=== PATIENT | female | born 1980 | race Caucasian/White ===

== ENCOUNTER 2018-06-24 13:44 | Observation (INO) | payer SELFPAY ==
[~2018-06-24] VITALS: Ht 160 cm; Wt 73.0 kg
[~2018-06-24 13:44] MED LIST: ALPR0.25 PO; ASPI-496 PO; FAMO20TA37 PO; LORA-446 PO; MELA1TAB8 PO
--- NOTE | 2018-06-24 13:49 | NUR ---
PRESENTS VIA [facility] AFTER NEAR SYNCOPAL EPISODE PRECEDED BY CHEST HEAVINESS WHILE SHOVELING SNOW. HX OF UNKNOWN ARYTHMIA. FSBS 102, VSS
[2018-06-24 14:12] LABS: BASOPHILS # (AUTO) 0.08 x10^3/uL (0-0.1); BASOPHILS % (AUTO) 1 % (0-1); EOSINOPHILS # (AUTO) 0.07 x10^3/uL (0-0.4); EOSINOPHILS % (AUTO) 1 % (1-7); LYMPHOCYTES # (AUTO) 2.09 x10^3/uL (1-3.4); LYMPHOCYTES % (AUTO) 28 % (22-44); MD NO; MEAN CORPUSCULAR HEMOGLOBIN 32.1 pg (27.0-34.8); MEAN CORPUSCULAR HGB CONC 34.1 g/dL (32.4-35.8); MEAN PLATELET VOLUME 9.3 fL (7.4-10.4); MONOCYTES # (AUTO) 0.45 x10^3/uL (0.2-0.8); MONOCYTES % (AUTO) 6 % (2-9); NEUTROPHILS # (AUTO) 4.88 x10^3/uL (1.8-6.8); NEUTROPHILS % (AUTO) 65 % (42-75); PLATELET COUNT 255 x10^3/uL (130-400); RED BLOOD COUNT 4.47 x10^6/uL (3.82-5.3); RED CELL DISTRIBUTION WIDTH 13.1 % (9.6-15.2)
[2018-06-24 14:24] LABS: ALANINE AMINOTRANSFERASE 33 U/L (12-78); ALBUMIN 3.7 g/dL (3.4-5.0); ANION GAP 7 mmol/L (5-15); CALCIUM 8.8 mg/dL (8.5-10.1); CHLORIDE 112 mmol/L (98-107); CREATININE 0.71 mg/dL (0.55-1.02)
[2018-06-24 14:28] LABS: ALKALINE PHOSPHATASE 76 U/L (45-117); BILIRUBIN,TOTAL 0.4 mg/dL (0.2-1.0); TOTAL PROTEIN 7.4 g/dL (6.4-8.2); TROPONIN I < 0.015 ng/mL (0.000-0.045)
--- NOTE | 2018-06-24 14:59 | NUR ---
CONTINUES TO DENY PALPITATIONS/DISCOMFORT OF ANY KIND. AMBULATORY. ORTHO NEGATIVE. EATING/DRINKINGW/OUT DIFFICULTY
[2018-06-24 16:21] VITALS: BP 114/76
[2018-06-24] MEDS ORDERED: DOCUSATE 100 MG CAPSULE PO PRN (18:00)
[2018-06-24] MEDS ORDERED: NITROGLYCERIN 0.4 MG/SPRAY SL PRN (18:00)
[2018-06-24] MEDS ORDERED: NITROGLYCERIN 0.4 MG BOTTLE (25 TABS) SL PRN (18:00)
[2018-06-24] MEDS ORDERED: ENALAPRILAT 1.25 MG/ML, 2ML IVPush PRN (18:00)
[2018-06-24] MEDS ORDERED: ONDANSETRON ODT 4 MG PO PRN (18:00)
[2018-06-24] MEDS ORDERED: ENOXAPARIN 40 MG/0.4 ML SQ SCH (18:00)
[2018-06-24] MEDS ORDERED: SODIUM CHLORIDE 0.9% 1,000 ML IV SCH (18:00)
[2018-06-24] MEDS ORDERED: ACETAMINOPHEN 325 MG TABLET PO PRN (18:00)
[2018-06-24 18:40] VITALS: BP 113/77
[2018-06-24 20:18] LABS: TROPONIN I < 0.015 ng/mL (0.000-0.045)
[2018-06-25 00:34] VITALS: BP 132/92
== END 2018-06-25 00:57 | disposition left against medical advice (07) ==
LOC: ED 15:18 → EDIP 15:19 → INTOOBSV 15:19 → ED 15:36 → 5SO 16:19
PROVIDERS: ADMIT Hospitalist; ATTEND Hospitalist
DX: R55 Syncope and collapse (principal); E78.5 Hyperlipidemia, unspecified; I10 Essential (primary) hypertension; Z82.41 Family history of sudden cardiac death
CPT/HCPCS: 36415; 71045; 80053; 82962; 84443; 84484; 84703; 85025; 93005; 93970; 99284; G0378